=== PATIENT | male | born 1995 | race Caucasian/White ===

== ENCOUNTER 2017-02-08 22:58 | Emergency (ER) | payer OTHER ==
[~2017-02-08] VITALS: Ht 172.7 cm; Wt 115.7 kg
[2017-02-08] MEDS ORDERED: 0.9 % SODIUM CHLORIDE 10 ML DISP.SYRIN. IV PRN (23:45)
[2017-02-09] MEDS ORDERED: ONDANSETRON PF 4 MG/2 ML VIAL. IV ONE ×2 (00:15→02:00)
[2017-02-09] MEDS ORDERED: IV NORMAL SALINE 1,000ML 1,000 ML IV ONE (00:15)
--- NOTE | 2017-02-09 01:23 | ED.ADGEN ---
Past History Past Surgical History: Other (mastoidectomy, ear tubes bilaterally) Adult General Chief Complaint Chief Complaint Nausea vomiting diarrhea crampy abdominal pain, urinary retention. HPI HPI Patient is a pleasant 21-year-old male with a 24-48 hour history of nausea vomiting diarrhea too numerous to count with crampy abdominal pain and now decreased urinary output with no output for the last 12 hours. He feels pressure in his abdomen right above the symphysis pubis denies any penile discharge or pain with urination or hematuria. He's had subjective chills and fevers at home measured at 103.1 defervesced with Tylenol and Motrin and aspirin. Patient is also been forcefully trying to hydrate. 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 He denies any trauma, travel outside the country, consumption of raw food, or recent antimicrobials. Review of Systems Review of Systems Constitutional: He does have fevers and chills Eyes: Denies change in visual acuity, redness, or eye pain [] HENT: Denies nasal congestion or sore throat [] Respiratory: Denies cough or shortness of breath [] Cardiovascular: No additional information not addressed in HPI [] GI: He does complain of abdominal pain nausea vomiting diarrhea no bloody stools nonbilious emesis : Denies dysuria or hematuria [] he complains of decreased urinary output Musculoskeletal: Denies back pain or joint pain [] Integument: Denies rash or skin lesions [] Neurologic: Denies headache, focal weakness or sensory changes [] Endocrine: Denies polyuria or polydipsia [] Current Medications Current Medications Current Medications Medications (Trade) Dose Ordered Sig/Delmy Start Time Stop Time Status Last Admin Dose Admin Hydromorphone HCl (Dilaudid) 1 mg 1X ONCE 02/09/17 01:45 02/09/17 01:46 UNV Ondansetron HCl (Zofran) 4 mg 1X ONCE 02/09/17 01:45 02/09/17 01:46 UNV Sodium Chloride (Iv Sodium Chloride 0.9% 1,000ml) 1,000 ml @ 1,000 mls/hr 1X ONCE 02/09/17 00:15 02/09/17 01:14 DC 02/09/17 00:15 1,000 MLS/HR Sodium Chloride 10 ml 10 ml PRN DAILY PRN 02/08/17 23:45 Allergies Allergies Allergies Coded Allergies Type Severity Reaction Last Updated Verified No Known Drug Allergies 02/08/17 No Physical Exam Physical Exam Constitutional: Patient is a uncomfortable diaphoretic pale in appearance pain scale of 6 out of 10 HENT: Normocephalic, atraumatic, bilateral external ears normal, oropharynx dry no oral exudates, nose normal. [] Eyes: PERRLA, EOMI, conjunctiva normal, no discharge. Oral pharynx is dry Neck: Normal range of motion, no tenderness, supple, no stridor. [] Cardiovascular:Heart rate regular rhythm, no murmur [] Lungs & Thorax: Bilateral breath sounds clear to auscultation [] Abdomen: Patient has hyperactive bowel sounds tenderness over the suprapubic area no guarding rebound organomegaly, does have Velazquez's or McBurney's point tenderness palpation Skin: Is warm and moist with diaphoresis no obvious signs of rash Back: No tenderness, no CVA tenderness. [] Extremities: No tenderness, no cyanosis, no clubbing, ROM intact, no edema. [] Neurologic: Alert and oriented X 3, normal motor function, normal sensory function, no focal deficits noted. [] Psychologic: Affect normal, judgement normal, mood normal. [] Current Patient Data Vital Signs Vital Signs Date Time Temp Pulse Resp B/P Pulse Ox O2 Delivery O2 Flow Rate FiO2 02/09/17 01:14 98.6 95 18 98 Room Air Vital signs reviewed from nursing notes Lab Results Laboratory Tests Test 02/09/17 00:50 02/09/17 01:07 White Blood Count 9.1x10^3/uL (4.0-11.0) Red Blood Count 5.67x10^6/uL (4.30-5.70) Hemoglobin 17.8g/dL (13.0-17.5) H Hematocrit 50.6% (39.0-53.0) Mean Corpuscular Volume 89fL (79-100) Mean Corpuscular Hemoglobin 31pg (25-35) Mean Corpuscular Hemoglobin Concent 35g/dL (31-37) Red Cell Distribution Width 12.0% (11.5-14.5) Platelet Count 195x10^3/uL (140-400) Neutrophils (%) (Auto) 44% (31-73) Lymphocytes (%) (Auto) 40% (24-48) Monocytes (%) (Auto) 14% (0-9) H Eosinophils (%) (Auto) 2% (0-3) Basophils (%) (Auto) 0% (0-3) Neutrophils # (Auto) 3.9x10^3uL (1.8-7.7) Lymphocytes # (Auto) 3.6x10^3/uL (1.0-4.8) Monocytes # (Auto) 1.3x10^3/uL (0.0-1.1) H Eosinophils # (Auto) 0.2x10^3/uL (0.0-0.7) Basophils # (Auto) 0.0x10^3/uL (0.0-0.2) Sodium Level 139mmol/L (136-145) Potassium Level 3.1mmol/L (3.5-5.1) L Chloride Level 102mmol/L (98-107) Carbon Dioxide Level 27mmol/L (21-32) Anion Gap 10 (6-14) Blood Urea Nitrogen 10mg/dL (8-26) Creatinine 1.0mg/dL (0.7-1.3) Estimated GFR (Cockcroft-Gault) 96.3 Glucose Level 89mg/dL (70-99) Calcium Level 9.0mg/dL (8.5-10.1) Urine Collection Type Unknown Urine Color Yellow Urine Clarity Clear Urine pH 7.0 Urine Specific Callery 1.010 Urine Protein Neg (NEG-TRACE) Urine Glucose (UA) Negmg/dL (NEG) Urine Ketones (Stick) Negmg/dL (NEG) Urine Blood Neg (NEG) Urine Nitrite Neg (NEG) Urine Bilirubin Neg (NEG) Urine Urobilinogen Dipstick 0.2mg/dL (0.2 mg/dL) Urine Leukocyte Esterase Neg (NEG) Urine RBC 0/HPF (0-2) Urine WBC 0/HPF (0-4) Urine Squamous Epithelial Cells Occ/LPF Urine Bacteria 0/HPF (0-FEW) EKG EKG [] Radiology/Procedures Radiology/Procedures [] Course & Med Decision Making Course & Med Decision Making Laboratory Tests Test 02/09/17 00:50 02/09/17 01:07 White Blood Count 9.1x10^3/uL (4.0-11.0) Red Blood Count 5.67x10^6/uL (4.30-5.70) Hemoglobin 17.8g/dL (13.0-17.5) Hematocrit 50.6% (39.0-53.0) Mean Corpuscular Volume 89fL (79-100) Mean Corpuscular Hemoglobin 31pg (25-35) Mean Corpuscular Hemoglobin Concent 35g/dL (31-37) Red Cell Distribution Width 12.0% (11.5-14.5) Platelet Count 195x10^3/uL (140-400) Neutrophils (%) (Auto) 44% (31-73) Lymphocytes (%) (Auto) 40% (24-48) Monocytes (%) (Auto) 14% (0-9) Eosinophils (%) (Auto) 2% (0-3) Basophils (%) (Auto) 0% (0-3) Neutrophils # (Auto) 3.9x10^3uL (1.8-7.7) Lymphocytes # (Auto) 3.6x10^3/uL (1.0-4.8) Monocytes # (Auto) 1.3x10^3/uL (0.0-1.1) Eosinophils # (Auto) 0.2x10^3/uL (0.0-0.7) Basophils # (Auto) 0.0x10^3/uL (0.0-0.2) Sodium Level 139mmol/L (136-145) Potassium Level 3.1mmol/L (3.5-5.1) Chloride Level 102mmol/L (98-107) Carbon Dioxide Level 27mmol/L (21-32) Anion Gap 10 (6-14) Blood Urea Nitrogen 10mg/dL (8-26) Creatinine 1.0mg/dL (0.7-1.3) Estimated GFR (Cockcroft-Gault) 96.3 Glucose Level 89mg/dL (70-99) Calcium Level 9.0mg/dL (8.5-10.1) Urine Collection Type Unknown Urine Color Yellow Urine Clarity Clear Urine pH 7.0 Urine Specific Callery 1.010 Urine Protein Neg (NEG-TRACE) Urine Glucose (UA) Negmg/dL (NEG) Urine Ketones (Stick) Negmg/dL (NEG) Urine Blood Neg (NEG) Urine Nitrite Neg (NEG) Urine Bilirubin Neg (NEG) Urine Urobilinogen Dipstick 0.2mg/dL (0.2 mg/dL) Urine Leukocyte Esterase Neg (NEG) Urine RBC 0/HPF (0-2) Urine WBC 0/HPF (0-4) Urine Squamous Epithelial Cells Occ/LPF Urine Bacteria 0/HPF (0-FEW) Nursery Laboratory Tests 02/09/17 00:50: White Blood Count 9.1, Red Blood Count 5.67, Hemoglobin 17.8, Hematocrit 50.6, Mean Corpuscular Volume 89, Mean Corpuscular Hemoglobin 31, Mean Corpuscular Hemoglobin Concent 35, Red Cell Distribution Width 12.0, Platelet Count 195, Neutrophils (%) (Auto) 44, Lymphocytes (%) (Auto) 40, Monocytes (%) (Auto) 14, Eosinophils (%) (Auto) 2, Basophils (%) (Auto) 0, Neutrophils # (Auto) 3.9, Lymphocytes # (Auto) 3.6, Monocytes # (Auto) 1.3, Eosinophils # (Auto) 0.2, Basophils # (Auto) 0.0, Sodium Level 139, Potassium Level 3.1, Chloride Level 102, Carbon Dioxide Level 27, Anion Gap 10, Blood Urea Nitrogen 10, Creatinine 1.0, Estimated GFR (Cockcroft-Gault) 96.3, Glucose Level 89, Calcium Level 9.0 02/09/17 01:07: Urine Collection Type Unknown, Urine Color Yellow, Urine Clarity Clear, Urine pH 7.0, Urine Specific Callery 1.010, Urine Protein Neg, Urine Glucose (UA) Neg , Urine Ketones (Stick) Neg, Urine Blood Neg, Urine Nitrite Neg, Urine Bilirubin Neg, Urine Urobilinogen Dipstick 0.2, Urine Leukocyte Esterase Neg, Urine RBC 0, Urine WBC 0, Urine Squamous Epithelial Cells Occ, Urine Bacteria 0 Vital Signs Date Time Temp Pulse Resp B/P Pulse Ox O2 Delivery O2 Flow Rate FiO2 02/09/17 01:14 98.6 95 18 98 Room Air Vital Signs Date Time Temp Pulse Resp B/P Pulse Ox O2 Delivery O2 Flow Rate FiO2 02/09/17 01:14 98.6 95 18 98 Room Air Pertinent Labs and Imaging studies reviewed. (See chart for details) [Reviewed laboratory work] at this point patient is well-hydrated urine specific gravity is normal does better with fluids although his crampy abdominal pain is still present is given another dose of occasions for nausea and pain will be sent home with continued evaluation for possible suspected gastritis. We will diagnose him with nausea vomiting diarrhea abdomen is soft on reevaluation I doubt that this is appendicitis or small bowel obstruction. This is infectious bacterial diarrhea no cold blood noted in diarrhea Shigella, salmonella, dysuria, claustrum difficile, or other bacterial less likely infectious etiology. She will be discharged with Bentyl, Zofran, Lomotil, and encouraged fluid hydration as well as the utilization of probiotics and PCP follow-up Final Impression Final Impression Nausea vomiting diarrhea, abdominal pain [] Problems: Dragon Disclaimer Dragon Disclaimer This electronic medical record was generated, in whole or in part, using a voice recognition dictation system. HAMMAD KNUTSON MD Feb 09, 2017 01:23
[2017-02-09 01:24] LABS: BASO % 0 % (0-3); EOS # 0.2 x10^3/uL (0.0-0.7); EOS % 2 % (0-3); HEMATOCRIT 50.6 % (39.0-53.0); HEMOGLOBIN 17.8 g/dL (13.0-17.5); LYMPH # 3.6 x10^3/uL (1.0-4.8); LYMPH % 40 % (24-48); MEAN CORPUSCULAR HEMOGLOBIN 31 pg (25-35); MEAN CORPUSCULAR HGB CONC 35 g/dL (31-37); MEAN CORPUSCULAR VOLUME 89 fL (79-100); MONO # 1.3 x10^3/uL (0.0-1.1); MONO % 14 % (0-9); NEUT # 3.9 x10^3uL (1.8-7.7); NEUT % 44 % (31-73); PLATELET COUNT 195 x10^3/uL (140-400); RED BLOOD COUNT 5.67 x10^6/uL (4.30-5.70); WHITE BLOOD COUNT 9.1 x10^3/uL (4.0-11.0)
[2017-02-09 01:25] LABS: GFR 96.3; POTASSIUM 3.1 mmol/L (3.5-5.1)
[2017-02-09 01:31] LABS: BACTERIA,URINE 0 /HPF (0-FEW); BILIRUBIN,URINE NEG (NEG); CLARITY,URINE CLEAR; COLOR,URINE YELLOW; GLUCOSE,URINE NEG (NEG); NITRITE,URINE NEG (NEG); RBC,URINE 0 /HPF (0-2); SQUAMOUS EPITHELIAL CELL,UR OCC /LPF; UROBILINOGEN,URINE 0.2 mg/dL (0.2 mg/dL); WBC,URINE 0 /HPF (0-4)
[2017-02-09] MEDS ORDERED: DIPH1TAB PO (01:51)
[2017-02-09] MEDS ORDERED: ONDA4TAB10 SL (01:51)
[2017-02-09] MEDS ORDERED: ACET325T9 PO (01:51)
[2017-02-09] MEDS ORDERED: DICY10CA53 PO (01:51)
[2017-02-09] MEDS ORDERED: HYDROMORPHONE PF 1 MG/ML DISP.SYRIN. IV ONE (02:00)
[2017-02-09 02:06] VITALS: BP 97/58
== END 2017-02-09 02:06 | disposition home or self-care (01) ==
LOC: ER 22:58
DX: R11.2 Nausea with vomiting, unspecified (principal); R19.7 Diarrhea, unspecified; R10.9 Unspecified abdominal pain
CPT/HCPCS: 36415; 80048; 81001; 85027; 96374; 96375; 96376; 99284; J1170; J2405; J7030

== ENCOUNTER 2017-04-02 15:02 | Emergency (ER) | payer OTHER ==
[~2017-04-02] VITALS: Ht 172.7 cm; Wt 115.7 kg
[~2017-04-02 15:02] MED LIST: ACET325T9 PO; DICY10CA53 PO; DIPH1TAB PO; ONDA4TAB10 SL
[2017-04-02 15:12] VITALS: BP 139/81
--- NOTE | 2017-04-02 15:44 | PHYS DOC ---
Past History Past Medical History: Other Past Surgical History: Tonsillectomy, Other Alcohol Use: None Drug Use: None Adult General Chief Complaint Chief Complaint: EARACHE/EAR PAIN HPI HPI 21-year-old patient presents drainage and pain in the left ear. He states that he is an operations on his here in the past and trouble with MRSA infections in his ears before. Presents with pain in his ear. Review of Systems Review of Systems Constitutional: Denies fever or chills [] Eyes: Denies change in visual acuity, redness, or eye pain [] HENT: Denies nasal congestion or sore throat [] Respiratory: Denies cough or shortness of breath [] Cardiovascular: No additional information not addressed in HPI [] GI: Denies abdominal pain, nausea, vomiting, bloody stools or diarrhea [] : Denies dysuria or hematuria [] Musculoskeletal: Denies back pain or joint pain [] Integument: Denies rash or skin lesions [] Neurologic: Denies headache, focal weakness or sensory changes [] Endocrine: Denies polyuria or polydipsia [] Allergies Allergies Allergies Coded Allergies Type Severity Reaction Last Updated Verified vancomycin Allergy Unknown Itching 04/02/17 Yes Physical Exam Physical Exam Constitutional: Well developed, well nourished, no acute distress, non-toxic appearance. [] HENT: Normocephalic, atraumatic, he has purulent drainage from his left external ear canal oropharynx moist, no oral exudates, nose normal. [] Eyes: PERRLA, EOMI, conjunctiva normal, no discharge. [] Neck: Normal range of motion, no tenderness, supple, no stridor. [] Cardiovascular:Heart rate regular rhythm, no murmur [] Lungs & Thorax: Bilateral breath sounds clear to auscultation [] Abdomen: Bowel sounds normal, soft, no tenderness, no masses, no pulsatile masses. [] Skin: Warm, dry, no erythema, no rash. [] Back: No tenderness, no CVA tenderness. [] Extremities: No tenderness, no cyanosis, no clubbing, ROM intact, no edema. [] Neurologic: Alert and oriented X 3, normal motor function, normal sensory function, no focal deficits noted. [] Psychologic: Affect normal, judgement normal, mood normal. [] Current Patient Data Vital Signs Vital Signs Date Time Temp Pulse Resp B/P (MAP) Pulse Ox O2 Delivery O2 Flow Rate FiO2 04/02/17 15:12 98.2 88 16 98 Room Air EKG EKG [] Radiology/Procedures Radiology/Procedures [] Impressions: Left otitis externa Course & Med Decision Making Course & Med Decision Making The patient was placed on Cipro otic drops [] Dragon Disclaimer Dragon Disclaimer This chart was dictated in whole or in part using Voice Recognition software in a busy, high-work load, and often noisy Emergency Department environment. It may contain unintended and wholly unrecognized errors or omissions. Departure Departure: Referrals: PCP,NHAN (PCP) CANDIDO LUNA MD Apr 02, 2017 15:44
[2017-04-02] MEDS ORDERED: CIPROFLOXACIN 0.3% OPHTH SOLUTION 2.5ML BOTTLE. OD ONE (16:00)
== END 2017-04-02 15:55 | disposition home or self-care (01) ==
LOC: ER 15:02
DX: H60.92 Unspecified otitis externa, left ear (principal); Z88.1 Allergy status to other antibiotic agents
CPT/HCPCS: 99282

== ENCOUNTER 2017-04-14 23:52 | Emergency (ER) | payer OTHER ==
[~2017-04-14] VITALS: Ht 172.7 cm; Wt 115.7 kg
--- NOTE | 2017-04-15 01:18 | PHYS DOC ---
Past History Past Medical History: Other Past Surgical History: Tonsillectomy, Other Alcohol Use: None Drug Use: None Adult General Chief Complaint Chief Complaint: EARACHE/EAR PAIN HPI HPI 21-year-old male with history of multiple otitis media infections and otitis externa infections and a history of mastoiditis status post mastoidectomy. He presents the emergency department today with worsening drainage from his left ear. He reports a green-yellow discharge draining. He recently was started on topical antibiotics which is did not improve his symptoms. He reports seeing multiple infectious disease specialist for this. He is from [place]. Onset 2 weeks. Location left ear. Duration intermittent. No alleviating or exacerbating factors present. Review of systems is negative for chest pain shortness of breath nausea vomiting fevers chills. He denies confusion numbness weakness tingling vision changes. All other review of systems is negative unless otherwise noted in history of present illness. ED course: 21-year-old gentleman presenting with otitis externa refractory to topical antibiotics. Triage vital signs showed that the patient was afebrile with mild chronic hypertension. Otherwise unremarkable. Given the patient's refraction to outpatient therapy, the patient was given IV antibiotics. CT of the head shows possible osteomyelitis/otomastoiditis. I discussed the case with Dr.Stanley Herndon at the [facility] covering ENT who accepted the patient for transfer for further evaluation workup and care to the emergency department. Review of Systems Review of Systems SEE ABOVE. Allergies Allergies Allergies Coded Allergies Type Severity Reaction Last Updated Verified codeine Allergy Unknown 04/15/17 Yes vancomycin Allergy Unknown Itching 04/02/17 Yes Physical Exam Physical Exam Constitutional: Well developed, well nourished, no acute distress, non-toxic appearance. [] HENT: Normocephalic, atraumatic, bilateral external ears normal, oropharynx moist, no oral exudates, nose normal. [] The patient's left external auditory canal is erythematous and swollen with renal discharge. Patient's posterior articular region shows sternotomy scar. No erythema of the posterior auricular region. Eyes: PERRLA, EOMI, conjunctiva normal, no discharge. [] Neck: Normal range of motion, no tenderness, supple, no stridor. [] Cardiovascular:Heart rate regular rhythm, no murmur [] Lungs & Thorax: Bilateral breath sounds clear to auscultation [] Abdomen: Bowel sounds normal, soft, no tenderness, no masses, no pulsatile masses. [] Skin: Warm, dry, no erythema, no rash. [] Back: No tenderness, no CVA tenderness. [] Extremities: No tenderness, no cyanosis, no clubbing, ROM intact, no edema. [] Neurologic: Alert and oriented X 3, normal motor function, normal sensory function, no focal deficits noted. [] Psychologic: Affect normal, judgement normal, mood normal. [] Current Patient Data Vital Signs Vital Signs Date Time Temp Pulse Resp B/P (MAP) Pulse Ox O2 Delivery O2 Flow Rate FiO2 04/14/17 23:52 98.5 93 20 98 Room Air EKG EKG [] Radiology/Procedures Radiology/Procedures [] Course & Med Decision Making Course & Med Decision Making Pertinent Labs and Imaging studies reviewed. (See chart for details) [] Dragon Disclaimer Dragon Disclaimer This chart was dictated in whole or in part using Voice Recognition software in a busy, high-work load, and often noisy Emergency Department environment. It may contain unintended and wholly unrecognized errors or omissions. Departure Departure: Impression: Primary Impression: Otitis externa, left Disposition: 02 XFER [id number] HOSP () Condition: STABLE Referrals: PCP,NO (PCP) SORAYA BOYER MD Apr 15, 2017 01:18
[2017-04-15 01:57] LABS: BASO # 0.1 x10^3/uL (0.0-0.2); BASO % 1 % (0-3); EOS # 0.1 x10^3/uL (0.0-0.7); EOS % 0 % (0-3); HEMATOCRIT 47.8 % (39.0-53.0); HEMOGLOBIN 16.9 g/dL (13.0-17.5); LYMPH # 5.5 x10^3/uL (1.0-4.8); LYMPH % 45 % (24-48); MEAN CORPUSCULAR HEMOGLOBIN 32 pg (25-35); MEAN CORPUSCULAR HGB CONC 35 g/dL (31-37); MEAN CORPUSCULAR VOLUME 90 fL (79-100); MONO # 0.8 x10^3/uL (0.0-1.1); MONO % 7 % (0-9); NEUT # 5.9 x10^3uL (1.8-7.7); NEUT % 48 % (31-73); PLATELET COUNT 213 x10^3/uL (140-400); RED CELL DISTRIBUTION WIDTH 12.2 % (11.5-14.5); WHITE BLOOD COUNT 12.3 x10^3/uL (4.0-11.0)
[2017-04-15 02:01] LABS: CALCIUM 9.1 mg/dL (8.5-10.1); CREATININE 0.8 mg/dL (0.7-1.3); GFR 124.5; POTASSIUM 3.7 mmol/L (3.5-5.1)
--- NOTE | 2017-04-15 02:02 | RAD ---
CT scan of the head without contrast 04/15/2017 Clinical History: Left ear infection. Left ear pain which radiates to back of head.. Technique: Unenhanced, contiguous, 5 mm axial sections were obtained through the head. One or more of the following individualized dose reduction techniques were utilized for this study: 1. Automated exposure control. 2. Adjustment of the mA and/or kV according to patient size. 3. Use of iterative reconstruction technique. Findings: The ventricles and sulci are within normal limits in size and configuration. No focal area of abnormal attenuation is seen involving the brain parenchyma. No extra-axial fluid collection is seen. No skull fracture is seen. Complete opacification of the left mastoid air cells with fluid is seen. Opacification of the left middle ear cavity with fluid is seen. These findings are consistent with otomastoiditis. Thinning and bony irregularity are seen involving the lateral inferior aspect of the left mastoid air cells which could reflect bony destruction and possible osteomyelitis. Clinical correlation is recommended. IMPRESSION: 1. No acute intracranial abnormality is seen. 2. Opacification of the left mastoid air cells and left middle ear cavity with fluid is seen consistent with otomastoiditis. Thinning and bony irregularity is seen along the lateral inferior aspect of the left mastoid air cells which could reflect bony destruction and possible osteomyelitis. Clinical correlation is recommended. Electronically signed by: Freddie Kingston MD (04/15/2017 1:59 AM)
[2017-04-15] MEDS ORDERED: VANCOMYCIN PER PHARMACY MC PRN (02:45)
[2017-04-15] MEDS ORDERED: PIP/TAZO PER PHARMACY MC PRN (02:45)
[2017-04-15] MEDS ORDERED: diphenhydrAMINE 50 MG/ML VIAL IVP ONE (03:00)
[2017-04-15] MEDS ORDERED: VANCOMYCIN 2 GM in IV NORMAL SALINE 500ML 500 ML IV ONE (03:15)
[2017-04-15] MEDS ORDERED: VANCOMYCIN 1 GM VIAL. ONE (03:49)
[2017-04-15] MEDS ORDERED: IV NORMAL SALINE 500ML 500 ML ONE (03:49)
[2017-04-15 04:05] VITALS: BP 131/85
[2017-04-15] MEDS ORDERED: PIPERACILLIN/TAZOBACTAM 4.5 GM in IV NORMAL SALINE 50ML 50 ML IV SCH (06:00)
== END 2017-04-15 04:34 | disposition short-term general hospital (02) ==
LOC: ER 23:52
DX: H60.92 Unspecified otitis externa, left ear (principal); Z88.5 Allergy status to narcotic agent; Z88.1 Allergy status to other antibiotic agents
CPT/HCPCS: 36415; 70460; 80048; 85027; 87040; 87070; 96365; 96375; 99285; J1200; J3370; J7040

== ENCOUNTER 2017-10-16 00:25 | Emergency (ER) | payer OTHER ==
[~2017-10-16] VITALS: Ht 172.7 cm; Wt 115.7 kg
[2017-10-16 00:28] VITALS: BP 131/84
[2017-10-16] MEDS ORDERED: IV NORMAL SALINE 1,000ML 1,000 ML IV SCH (00:34)
[2017-10-16] MEDS ORDERED: ONDANSETRON PF 4 MG/2 ML VIAL. IV ONE (00:45)
[2017-10-16] MEDS ORDERED: KETOROLAC 30 MG/ML VIAL. IV ONE (00:45)
[2017-10-16] MEDS ORDERED: 0.9 % SODIUM CHLORIDE 10 ML DISP.SYRIN. IV PRN (00:45)
--- NOTE | 2017-10-16 00:45 | PHYS DOC ---
Past History Past Medical History: No Pertinent History, Other Past Surgical History: Tonsillectomy, Other Additional Past Surgical Histo: pins in his ankle Smoking: Cigarettes Alcohol Use: None Drug Use: None Adult General Chief Complaint Chief Complaint: nausea vomiting diarrhea [facility] HPI he is a pleasant otherwise healthy 22-year-old male with a 2 day history of progressive nausea vomiting diarrhea described as nonbilious nonbloody and bloody emesis 5-6 episodes today with a low-grade fever to 102.4 with diffuse abdominal pain and now diarrhea described as watery but nonmucoid nonbloody. Patient has had sick contacts at work, he's had no recent antibiotics, no recent travel outside the country, he does not handle poultry or reptiles. He does not consume raw foods. Patient denies any prior history of the same. Patient denies any trauma, UTI symptoms, back pain, shortness of breath or lightheadedness. He has flulike symptoms with a frontal headache that is not worse of life sudden onset described as dull ache worse with changing positions standing quickly. Low is been trying to stay hydrated and feels dehydrated without a sore throat Review of Systems Review of Systems Constitutional: Documented fever to 1024 home Eyes: Denies change in visual acuity, redness, or eye pain [] HENT: Denies nasal congestion or sore throat [] Respiratory: Denies cough or shortness of breath [] Cardiovascular: No additional information not addressed in HPI [] GI: Diffuse abdominal pain that began after nausea vomiting nonbloody and nonmucoid diarrhea stool : Denies dysuria or hematuria [] Musculoskeletal: Denies back pain or joint pain [] Integument: Denies rash or skin lesions [] Neurologic: he has a mild frontal headache and over the back of the scalp without focal neurologic deficit or paresthesias not worse of life and sudden onset Endocrine: Denies polyuria or polydipsia [] All other systems were reviewed and found to be within normal limits, except as documented in this note. Allergies Allergies Allergies Coded Allergies Type Severity Reaction Last Updated Verified codeine Allergy Unknown 04/15/17 Yes vancomycin Allergy Unknown Itching 04/02/17 Yes Physical Exam Physical Exam Other vital signs recorded on the chart patient noted to be tachycardic but not hypotensive afebrile Constitutional: Well developed, well nourished, patient is obviously not feeling well but is nontoxic HENT: Normocephalic, atraumatic, bilateral external ears normal, oropharynx dry , no oral exudates, nose normal. [] Eyes: PERRLA, EOMI, conjunctiva normal, no discharge. [] Neck: Normal range of motion, no tenderness, supple, no stridor. [] Cardiovascular: Tachycardia noted no murmurs Rubs Lungs & Thorax: Bilateral breath sounds clear to auscultation [] Abdomen: Patient's abdomen is soft he has increased active bowel sounds no guarding rebound or organomegaly he has no specific guarding no Velazquez's or McBurney point tenderness or torres Hall's sign Skin: Warm, dry, no erythema, no rash. [] Back: No tenderness, no CVA tenderness. [] Extremities: No tenderness, no cyanosis, no clubbing, ROM intact, no edema. [] Neurologic: Alert and oriented X 3, normal motor function, normal sensory function, no focal deficits noted. [] Psychologic: Affect normal, judgement normal, mood normal. [] EKG EKG [] Radiology/Procedures Radiology/Procedures [] Course & Med Decision Making Course & Med Decision Making Pertinent Labs and Imaging studies reviewed. (See chart for details) []Patient presented with nausea vomiting diarrhea that began early this morning with a migraine headache. Migraine headache is typical for patient worse of life and sudden onset. Patient received fluids here and the mother is present feels markedly better as had no episodes of vomiting and diarrhea here in the ER. The CBC, CMP and lipase level all normal, patient's urinalysis shows a normal urine specific gravity with no evidence of infection or proteinuria discharge: Plan to discharge him with antiemetics and antidiarrheal medications as well as Bentyl follow-up with his primary care doctor and precautions I've spoken with the patient and/or caregivers. I've explained the patient's condition, diagnosis and treatment plan based on information available to me at this time. I've answered the patient's and/or caregivers questions and addressed any concerns. The patient and/or caregivers have a good understanding the patient's diagnosis, condition and treatment plan as can be expected at this point. Vital signs have been stabilized. The patient's condition is stable for discharge from the emergency department. The patient will pursue further outpatient evaluation with her primary care provider or other designated consulting physician as outlined in the discharge instructions. Patient and/or caregivers are agreeable to this plan of care and follow-up instructions have been explained in detail. The patient and/or caregivers have received these instructions in written format and expressed understanding of these discharge instructions. The patient and her caregivers are aware that if any significant change in condition or worsening of symptoms should prompt him to immediately return to this of the closest emergency department. If an emergent department is not readily available I would encourage him to call 911.\ Dragon Disclaimer Dragon Disclaimer This electronic medical record was generated, in whole or in part, using a voice recognition dictation system. Departure Departure: Impression: Primary Impression: Nausea & vomiting Additional Impressions: Diarrhea Abdominal pain Disposition: HOME, SELF-CARE Condition: IMPROVED Referrals: [facility] (PCP) Patient Instructions: Abdominal Pain, Diarrhea, Nausea and Vomiting Additional Instructions: My discharge plan Follow up: In addition patient is asked to followup with their primary doctor, within a week for followup examination and to address patient's ongoing medical conditions. . Patient is advised that in the Emergency Department primary complaints are addressed and only in light of known signs and symptoms. Patient should return immediately to the emergency department if new signs and symptoms develop or patient's condition worsens in any way. At time of discharge patient was in stable condition and had verbalized understanding of the discharge instructions. Although there is no obvious evidence of appendicitis or intra-abdominal catastrophe at this time requiring surgical intervention or immediate medical management you could still develop these issues in the future. I would ask that you return immediately for any increasing symptoms question concerns. Scripts Dicyclomine Hcl (BENTYL) 10 Mg Capsule 1 CAP PO TID, #15 CAP.EC Prov: HAMMAD KNUTSON MD 10/16/17 Prochlorperazine Maleate (Compazine) 10 Mg Tablet 10 MG PO TID for 5 Days, #15 TAB Prov: HAMMAD KNUTSON MD 10/16/17 Diphenoxylate Hcl/Atropine (LOMOTIL TABLET) 1 Each Tablet 1 TAB PO QID, #20 TAB Prov: HAMMAD KNUTSON MD 10/16/17 Problem Qualifiers HAMMAD KNUTSON MD Oct 16, 2017 00:45
[2017-10-16 01:13] LABS: BASO % 0 % (0-3); EOS % 0 % (0-3); HEMOGLOBIN 17.1 g/dL (13.0-17.5); LYMPH # 1.5 x10^3/uL (1.0-4.8); LYMPH % 15 % (24-48); MEAN CORPUSCULAR HEMOGLOBIN 32 pg (25-35); MEAN CORPUSCULAR HGB CONC 35 g/dL (31-37); MEAN CORPUSCULAR VOLUME 91 fL (79-100); MONO # 1.4 x10^3/uL (0.0-1.1); MONO % 13 % (0-9); NEUT # 7.4 x10^3uL (1.8-7.7); NEUT % 72 % (31-73); PLATELET COUNT 199 x10^3/uL (140-400); RED BLOOD COUNT 5.39 x10^6/uL (4.30-5.70); WHITE BLOOD COUNT 10.3 x10^3/uL (4.0-11.0)
[2017-10-16 01:21] LABS: ALBUMIN 4.3 g/dL (3.4-5.0); BILIRUBIN,URINE NEG (NEG); CALCIUM 9.5 mg/dL (8.5-10.1); CLARITY,URINE CLEAR; COLOR,URINE YELLOW; DIRECT BILIRUBIN 0.1 mg/dL (0.0-0.2); GFR 95.3; GLUCOSE,URINE NEG (NEG); TOTAL BILIRUBIN 0.7 mg/dL (0.2-1.0); TOTAL PROTEIN 7.5 g/dL (6.4-8.2)
[2017-10-16 01:22] LABS: BACTERIA,URINE 0 /HPF (0-FEW); NITRITE,URINE NEG (NEG); RBC,URINE 0 /HPF (0-2); UROBILINOGEN,URINE 0.2 mg/dL (0.2 mg/dL); WBC,URINE RARE /HPF (0-4)
[2017-10-16 01:24] LABS: POTASSIUM 4.2 mmol/L (3.5-5.1)
[2017-10-16] MEDS ORDERED: DIPH1TAB PO (01:33)
[2017-10-16] MEDS ORDERED: DICY10CA53 PO (01:33)
[2017-10-16] MEDS ORDERED: PROC10TA57 PO (01:33)
== END 2017-10-16 02:00 | disposition home or self-care (01) ==
LOC: ER 00:25
DX: R11.2 Nausea with vomiting, unspecified (principal); R19.7 Diarrhea, unspecified; R51 Headache; R10.84 Generalized abdominal pain; F17.210 Nicotine dependence, cigarettes, uncomplicated; Z88.1 Allergy status to other antibiotic agents; Z88.5 Allergy status to narcotic agent
CPT/HCPCS: 36415; 80048; 80076; 81001; 83690; 85025; 96361; 96374; 96375; 99284; J2405; J3010; J7030

== ENCOUNTER 2018-04-22 00:04 | Emergency (ER) | payer OTHER ==
[~2018-04-22] VITALS: Ht 175.3 cm; Wt 117.9 kg
[~2018-04-22 00:04] MED LIST changes: +PROC10TA57 PO
[2018-04-22 00:05] VITALS: BP 156/93
[2018-04-22] MEDS ORDERED: HYDROcodon/IBUPROFEN 7.5/200MG 1 TAB TABLET PO ONE (01:00)
--- NOTE | 2018-04-22 01:52 | RAD ---
Left wrist x-rays 4 views with AP, lateral, oblique and navicular views HISTORY: Left wrist injury and pain after fall on outstretched hand. FINDINGS: No fracture, dislocation or arthritic change of the left wrist. The soft tissues are unremarkable. IMPRESSION: No acute osseous injury. Electronically signed by: Kevin Hampton MD (04/22/2018 1:49 AM) [facility]
--- NOTE | 2018-04-22 02:35 | ED.ADGEN ---
Past History Past Medical History: No Pertinent History Past Surgical History: Other Additional Past Surgical Histo: pins in his ankle Smoking: Cigarettes Alcohol Use: Occasionally Drug Use: None Adult General Chief Complaint Chief Complaint " I was at work yesterday... at [employer].. 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 and I tripped.. I tried to catch myself and I came down on my Lt. hand... and my thumb and wrist and hurts...still..." HPI HPI Patient is a 22 year old male who presents with above hx and complaints of Lt. wrist and thumb pain. Pt. distal neurovascular intact. Primary locus of pain is base of thumb and radial side of wrist, and "snuff box" area. Pt. with ROM of both thumb and wrist. No upper arm tenderness. No other injury reported. Pt. is right hand dominate. Review of Systems Review of Systems Constitutional: Denies fever or chills [] Eyes: Denies change in visual acuity, redness, or eye pain [] HENT: Denies nasal congestion or sore throat [] Respiratory: Denies cough or shortness of breath [] Cardiovascular: No additional information not addressed in HPI [] GI: Denies abdominal pain, nausea, vomiting, bloody stools or diarrhea [] : Denies dysuria or hematuria [] Musculoskeletal: Denies back pain or joint pain []Complaints of Lt wrist pain. Integument: Denies rash or skin lesions [] Neurologic: Denies headache, focal weakness or sensory changes [] Endocrine: Denies polyuria or polydipsia [] All other systems were reviewed and found to be within normal limits, except as documented in this note. Family History Family History Non-contributory Current Medications Current Medications Current Medications Medications (Trade) Dose Ordered Sig/Delmy Start Time Stop Time Status Last Admin Dose Admin Hydrocodone Bitartrate/ Ibuprofen (Vicoprofen 7.5-200) 2 tab 1X ONCE 04/22/18 01:00 04/22/18 01:01 DC 04/22/18 00:50 2 TAB Allergies Allergies Allergies Coded Allergies Type Severity Reaction Last Updated Verified codeine Allergy Unknown 04/15/17 Yes vancomycin Allergy Unknown Itching 04/02/17 Yes Physical Exam Physical Exam Constitutional: , in moderately acute distress, non-toxic appearance. [] HENT: Normocephalic, atraumatic, bilateral external ears normal, oropharynx moist, no oral exudates, nose normal. []Lip , eye and ear studs Eyes: PERRLA, EOMI, conjunctiva normal, no discharge. [] Neck: Normal range of motion, no tenderness, supple, no stridor. [] Cardiovascular:Heart rate regular rhythm, no murmur [] Lungs & Thorax: Bilateral breath sounds clear to auscultation [] Abdomen: Bowel sounds normal, soft, no tenderness, no masses, no pulsatile masses. Obese. Surgery scar. Skin: Warm, dry, no erythema, no rash. [] Back: No tenderness, no CVA tenderness. [] Extremities: No tenderness, no cyanosis, no clubbing, ROM intact, no edema. [] Except findings in Lt. wrist as per HPI. Ankle scar. Neurologic: Alert and oriented X 3, normal motor function, normal sensory function, no focal deficits noted. [] Psychologic: Affect anxious, judgement normal, mood normal. [] Current Patient Data Vital Signs Vital Signs Date Time Temp Pulse Resp B/P (MAP) Pulse Ox O2 Delivery O2 Flow Rate FiO2 04/22/18 00:05 98.6 99 16 98 Room Air EKG EKG [] Radiology/Procedures Radiology/Procedures My interpretation of wrist film show s no displaced fx. questionable area in scaphoid area of wrist. Course & Med Decision Making Course & Med Decision Making Pertinent Labs and Imaging studies reviewed. (See chart for details). Ice, elevation, rest, splint, and follow-up primary care and workmen's comp. Patient instructed scaphoid fracture may be missed, repeat x-ray in 2 weeks May show callous indicating fracture. Splint applied. Patient take Tylenol and ibuprofen for discomfort. Must follow-up. [] Final Impression Final Impression 1. Wrist sprain 2. Possible scaphoid fracture, versus bone contusion[] Dragon Disclaimer Dragon Disclaimer This electronic medical record was generated, in whole or in part, using a voice recognition dictation system. KAUSHAL ANDRADE MD Apr 22, 2018 02:35
== END 2018-04-22 01:08 | disposition home or self-care (01) ==
LOC: ER 00:04
DX: S63.502A Unspecified sprain of left wrist, initial encounter (principal); F17.210 Nicotine dependence, cigarettes, uncomplicated; Z88.5 Allergy status to narcotic agent; Z88.1 Allergy status to other antibiotic agents; W01.0XXA Fall on same level from slipping, tripping and stumbling without subsequent striking against object, initial encounter; Y93.89 Activity, other specified; Y99.8 Other external cause status; Y92.89 Other specified places as the place of occurrence of the external cause
CPT/HCPCS: 29125; 73110; 99284

== ENCOUNTER 2021-11-09 09:46 | Emergency (ER) | payer OTHER ==
[~2021-11-09] VITALS: Ht 175.3 cm; Wt 74.5 kg
[2021-11-09 10:48] VITALS: BP 123/71
--- NOTE | 2021-11-09 11:39 | PHYS DOC ---
Past History Past Medical History: No Pertinent History (CHEO LYONS) Past Surgical History: Tonsillectomy, Other Additional Past Surgical Histo: pins in his ankle (CHEO LYONS) Smoking: Cigarettes Alcohol Use: None Drug Use: None (CHEO LYONS) General Adult EDM: Chief Complaint: COUGH HPI: HPI: Patient is a 26 year old male who presents with fever, congestion, cough, sore throat and NVD that began last night. Patient states that he is not vaccinated against COVID-19 and has not received a flu shot yet this season. He denies chills, night sweats, sputum production and bloody emesis or stool. He has no other complaints at this time. (CHEO LYONS) Review of Systems: Review of Systems: Constitutional: See HPI Eyes: Denies change in visual acuity, visual field deficits or discharge HENT: See HPI Respiratory: See HPI Cardiovascular: Denies chest pain, palpitations or edema GI: See HPI : Denies dysuria or hematuria Musculoskeletal: Denies back pain or joint pain Integument: Denies rash or other skin lesion Neurologic: Denies headache, focal weakness or sensory changes (CHEO LYONS) Allergies: Allergies: Allergies Coded Allergies Type Severity Reaction Last Updated Verified codeine Allergy Unknown 04/15/17 Yes vancomycin Allergy Unknown Itching 04/02/17 Yes (CHEO LYONS) Physical Exam: PE: Constitutional: Well developed, well nourished, no acute distress, patient appears fatigued. HENT: Normocephalic, atraumatic, bilateral external ears normal, nose normal. Eyes: EOMI, conjunctiva normal, no discharge. Neck: Normal range of motion, no stridor. Skin: Warm, dry, no erythema, no rash. Extremities: No tenderness, no cyanosis, no clubbing, ROM intact, no edema. Neurologic: Alert and oriented x4, steady and symmetrical gait, no focal deficits noted. (CHEO LYONS) Current Patient Data: Labs: Laboratory Tests Test 11/09/21 11:01 Influenza Type A (Rapid) Negative (NEGATIVE) Influenza Type B (Rapid) Negative (NEGATIVE) SARS-CoV-2 Antigen (Rapid) Positive (NEGATIVE) Vital Signs: Vital Signs Date Time Temp Pulse Resp B/P (MAP) Pulse Ox O2 Delivery O2 Flow Rate FiO2 11/09/21 10:48 99.9 101 16 123/71 (88) 99 Room Air (CHEO LYONS) Heart Score: C/O Chest Pain: No (CHEO LYONS) Course & Med Decision Making: Course & Med Decision Making Pertinent Labs and Imaging studies reviewed. (See chart for details) Patient is a 26-year-old male who presents with multiple complaints concerning for viral syndrome, COVID-19 cannot be excluded. Patient is unvaccinated against COVID-19 and the flu. Work-up today will consist of swabs for influenza A&B and COVID-19. Patient was counseled on supportive treatment measures, return precautions, iso lation instructions. He understands and is agreeable to discharge plan. (CHEO LYONS) Course & Med Decision Making I was the Attending physician on the above date of service of this patient. This patient was evaluated, examined, treated, and dispositioned from the emergency department by the mid-level practitioner. Although I was working at the time , no assistance was requested. Electronically signed, Morales Jackson DO (MORALES JACKSON DO) Isha Disclaimer: Isha Disclaimer: This electronic medical record was generated, in whole or in part, using a voice recognition dictation system. (CHEO LYONS) Departure Departure: Impression: Primary Impression: COVID-19 virus infection Disposition: HOME / SELF CARE / HOMELESS Condition: STABLE Referrals: PCP,[facility] (PCP) Patient Instructions: Viral Syndrome Additional Instructions: Follow the following supportive treatment measures: - Cool mist humidifier with plain water at bedside while you sleep - Mucinex (guaifenesin) per box instructions - Tessalon perles (benzonatate) for cough, especially at night before bed - Alternate ibuprofen and acetaminophen every four hours for body aches/fever/headache If antibiotics were prescribed, take them as directed. You have been tested for or diagnosed with COVID-19 infection. It is an infection caused by a new type of coronavirus. COVID-19 will cause cold-like or mild flu symptoms in most. It can cause more severe symptoms like problems breathing in some. There is no treatment for COVID-19. The body will clear the infection over time. Self-care will help to ease discomfort. Steps to Take: - Rest as needed. - Choose healthy foods including fruits and vegetables. Drink water throughout the day. - Get plenty of sleep each night. - If you smoke, try to quit. It may ease breathing. - Avoid alcohol. - Keep Others Healthy - The virus can spread to others. Droplets are released every time you sneeze or cough. The droplets can get into the mouth, nose, or eyes of people near you and lead to infection. To lower the chances of spreading COVID-19 to others: Stay at home until your doctor has said it is safe to leave. If you tested positive this will mean staying isolated until both of the following are true: - At least 10 days have passed since the start of illness. - You are free of fever for at least 72 hours without the use of medicine. During this time: - Avoid public areas, events, or transportation. Do not return to work or school until your doctor has said it is safe to do so. - Call ahead if you need to go to a medical center. Let them know you may have COVID-19. It will help them guide you where to go. They may also ask you to wear a facemask when you come to the office. - If you call for emergency medical services, let them know you may have COVID- 19. While at home: - Try to avoid close contact with others. Stay about 6 feet away. - If possible, spend most of your time in a separate room from others. - Use a face mask if you will be in close contact with others such as sharing a room or vehicle. - Have someone wipe down common surfaces in the home. Use household inside horticultural specialty grower every day on areas like doorknobs, counters, or sinks. - Cough or sneeze into a tissue. Throw the tissue away right after use. If a tissue is not available, cough or sneeze into your elbow. - Wash your hands often. Wash them after sneezing or coughing. Use soap and water and wash or at least 20 seconds. Alcohol based hand booth cleaner can be used if soap and water is not available. - Do not prepare food for others. Avoid sharing personal items like forks, spoons, or toothbrushes. - Avoid close contact with pets while you are sick. There is no evidence of the virus passing to pets. This is a safety step until more is known about this virus. - Isolation can be frustrating. Social interaction can help. Keep in touch with friends and family through phone and tech options. You can still interact with others in your home, just keep a safe distance of about 6 feet. Follow-up: - Your doctors office will check in with you to see if there are any changes in your health. - You may be asked to keep track of symptoms to share with them. They will also let you know when you are clear to be in public again. Contact your doctor if your recovery is not going as you expect. Get emergency care if you have problems such as: - Trouble breathing with oxygen saturation <90% - Nonstop chest pain or pressure - Changes in awareness, confusion, or problems waking - Lips or face have bluish color - Worsening of symptoms If you think you have an emergency, call for emergency medical services right away. As taken [place] [facility] Scripts Ondansetron (ONDANSETRON ODT) 4 Mg Tab.rapdis 1 TAB PO PRN Q6-8HRS for N/V, #20 TAB Prov: CHEO LYONS 11/09/21 Benzonatate (BENZONATATE) 100 Mg Capsule 1-2 CAP PO HS for cough, #20 CAP Prov: CHEO LYONS 11/09/21 CHEO LYONS Nov 09, 2021 11:39 MORALES JACKSON DO Nov 10, 2021 08:05
[2021-11-09 11:52] LABS: INFLUENZA A PATIENT NEGATIVE (NEGATIVE); INFLUENZA B PATIENT NEGATIVE (NEGATIVE)
[2021-11-09] MEDS ORDERED: BENZ-8 PO (12:10)
[2021-11-09] MEDS ORDERED: ONDA4TAB12 PO (12:10)
== END 2021-11-09 12:33 | disposition home or self-care (01) ==
LOC: ER 09:46
DX: U07.1 COVID-19 (principal); F17.210 Nicotine dependence, cigarettes, uncomplicated; Z88.5 Allergy status to narcotic agent; Z88.1 Allergy status to other antibiotic agents
CPT/HCPCS: 87426; 87428; 99283